=== PATIENT | male | born 1970 | race Caucasian/White ===

== ENCOUNTER 2023-06-18 00:02 | Emergency (ER) | payer MEDICAID, OTHER ==
[~2023-06-18] VITALS: Ht 177.8 cm; Wt 76.0 kg
[~2023-06-18 00:02] MED LIST: CEPH500T MT; DOXY100C5 MT
[2023-06-18] MEDS ORDERED: AMOX1TAB16 MT (01:05)
[2023-06-18 01:52] VITALS: BP 102/65; PULSE 77; RESP 16; TEMP 98.4; O2SAT 99
[2023-06-18] MEDS ORDERED: BO1 TP (03:17)
== END 2023-06-18 03:30 | disposition home or self-care (01) ==
LOC: ER 00:02
DX: S01.81XA Laceration without foreign body of other part of head, initial encounter (principal); W54.0XXA Bitten by dog, initial encounter; Y93.89 Activity, other specified; Y92.89 Other specified places as the place of occurrence of the external cause; Y99.8 Other external cause status
CPT/HCPCS: 12002; 99283